=== PATIENT | male | born 1945 | race Caucasian/White ===

== ENCOUNTER → 2017-07-23 | Outpatient (CLI) | payer MEDICARE ==
[~2017-07-23] MED LIST: AMLO5TAB2 PO; ASCO500T8 PO; ASPI-496 PO; CAND4TAB3 PO; CHOL100012 PO; MAGN200T PO; METO2.5T PO; MULT-412 PO; OMEP-110 PO; POTA10TA31 PO; VITA150T PO
== END | disposition home or self-care (01) ==
LOC: CFH 07:44
PROVIDERS: ATTEND Family Medicine
DX: F17.200 Nicotine dependence, unspecified, uncomplicated (principal)
CPT/HCPCS: 93978